=== PATIENT | male | born 1950 | race Native Hawaiian/Other Pacific Islander ===

== ENCOUNTER 2017-04-09 07:09 | Outpatient (CLI) | payer OTHER | END 2017-04-09 07:12 | disposition short-term general hospital (02) | LOC: AMB 07:09 | DX: R06.02 Shortness of breath (principal); I10 Essential (primary) hypertension | CPT/HCPCS: A0425; A0427 ==

== ENCOUNTER 2017-04-09 07:26 | Emergency (ER) | payer OTHER ==
[~2017-04-09] VITALS: Ht 188 cm; Wt 77.1 kg
[2017-04-09 07:14] VITALS: TEMP 99.2
[2017-04-09 07:57] LABS: PLATELET COUNT 387 K/uL (142-355)
[2017-04-09 08:01] LABS: POTASSIUM 4.5 mmol/L (3.6-5.2); SODIUM 136 mmol/L (136-145)
[2017-04-09 09:15] VITALS: BP 104/57
== END 2017-04-09 09:27 | disposition home or self-care (01) ==
LOC: ED 07:26
DX: J44.9 Chronic obstructive pulmonary disease, unspecified (principal); J06.9 Acute upper respiratory infection, unspecified; J02.0 Streptococcal pharyngitis; R00.0 Tachycardia, unspecified
CPT/HCPCS: 36600; 80053; 82550; 82805; 84484; 85027; 87804; 87880; 93005; 94664; 99283

== ENCOUNTER 2017-08-12 20:32 | Inpatient (IN) | payer OTHER ==
[~2017-08-12] VITALS: Ht 188 cm; Wt 78.0 kg
[2017-08-12 20:30] VITALS: BP 190/116; TEMP 98
[2017-08-12 21:27] LABS: PLATELET COUNT 225 K/uL (142-355)
[2017-08-12 21:33] LABS: POTASSIUM 4.7 mmol/L (3.6-5.2)
[2017-08-13] VITALS (55 sets, daily range): BP systolic 59–142; BP diastolic 37–93; TEMP 96.1–99.2; Ht 188 cm; Wt 78.0 kg
[2017-08-13 06:21] LABS: PLATELET COUNT 197 K/uL (142-355)
[2017-08-13 06:45] LABS: POTASSIUM 3.7 mmol/L (3.6-5.2)
[2017-08-13 12:44] LABS: PARTIAL THROMBOPLASTIN TIME 32.4 SECONDS (24.5-33.6)
[2017-08-14] VITALS (14 sets, daily range): BP systolic 100–146; BP diastolic 58–121; TEMP 97.9–98.2
[2017-08-14 07:06] LABS: PLATELET COUNT 162 K/uL (142-355)
[2017-08-14 07:19] LABS: POTASSIUM 4.1 mmol/L (3.6-5.2)
[2017-08-14] MEDS ORDERED: LISI20TA11 PO (14:30)
[2017-08-15] VITALS: BP 147/78; TEMP 98.9
[2017-08-15 04:00] VITALS: BP 153/87; TEMP 97.8
[2017-08-15 05:40] LABS: PLATELET COUNT 168 K/uL (142-355)
[2017-08-15 05:57] LABS: POTASSIUM 4.2 mmol/L (3.6-5.2)
[2017-08-15 08:00] VITALS: BP 139/80; TEMP 98.1
[2017-08-15 12:21] VITALS: BP 136/82; TEMP 97.8
[2017-08-15 16:00] VITALS: BP 140/80; TEMP 98.1
[2017-08-15 20:00] VITALS: BP 143/76; TEMP 98.6
[2017-08-16] VITALS: BP 143/97; TEMP 97.9
[2017-08-16 04:00] VITALS: BP 142/87; TEMP 97.8
[2017-08-16 05:20] LABS: PLATELET COUNT 173 K/uL (142-355)
[2017-08-16 05:34] LABS: POTASSIUM 4.2 mmol/L (3.6-5.2)
[2017-08-16 08:00] VITALS: BP 143/87; TEMP 97.7
[2017-08-16 12:14] VITALS: BP 138/83; TEMP 98.3
[2017-08-16 16:02] VITALS: BP 136/82; TEMP 98.2
[2017-08-16 20:00] VITALS: BP 123/69; TEMP 98.8
[2017-08-17] VITALS: BP 146/85; TEMP 98.4
[2017-08-17 04:00] VITALS: BP 151/96; TEMP 97.9
[2017-08-17 05:41] LABS: PLATELET COUNT 171 K/uL (142-355)
[2017-08-17 06:11] LABS: POTASSIUM 3.6 mmol/L (3.6-5.2)
[2017-08-17 08:00] VITALS: BP 163/98; TEMP 97.7
[2017-08-17 12:00] VITALS: BP 161/94; TEMP 97.8
[2017-08-17 16:00] VITALS: BP 147/86; TEMP 98.3
[2017-08-17 20:22] VITALS: BP 151/92; TEMP 98.2
[2017-08-18 00:14] VITALS: BP 140/89; TEMP 98.1
[2017-08-18 04:00] VITALS: BP 153/96; TEMP 97.5
[2017-08-18 04:32] LABS: PLATELET COUNT 166 K/uL (142-355)
[2017-08-18 04:53] LABS: POTASSIUM 3.8 mmol/L (3.6-5.2)
[2017-08-18 07:54] VITALS: BP 154/95; TEMP 98.7
[2017-08-18 11:15] LABS: POTASSIUM 4.2 mmol/L (3.6-5.2)
[2017-08-18 12:00] VITALS: BP 155/94; TEMP 98.2
[2017-08-18 16:00] VITALS: BP 146/88; TEMP 97.9
[2017-08-18 19:43] VITALS: BP 136/77; TEMP 98.5
[2017-08-19] VITALS (7 sets, daily range): BP systolic 126–167; BP diastolic 75–99; TEMP 97.3–98.1
[2017-08-19 05:20] LABS: PLATELET COUNT 165 K/uL (142-355)
[2017-08-20 03:44] VITALS: BP 143/90; TEMP 98.2
[2017-08-20 08:00] VITALS: BP 148/93; TEMP 97.1
[2017-08-20 12:02] VITALS: BP 144/89; TEMP 98.8
[2017-08-20 16:10] VITALS: BP 144/83; TEMP 98.1
[2017-08-20 20:00] VITALS: BP 128/74; TEMP 98.6
[2017-08-21] VITALS: BP 119/79; TEMP 98.3
[2017-08-21 04:00] VITALS: BP 142/88; TEMP 98.2
[2017-08-21 08:00] VITALS: BP 144/91; TEMP 98.1
[2017-08-21 12:00] VITALS: BP 131/81; TEMP 98.1
[2017-08-21 16:00] VITALS: BP 145/79; TEMP 98.2
[2017-08-21 20:25] VITALS: BP 129/70; TEMP 98.3
[2017-08-22] VITALS: BP 132/77; TEMP 98.4
[2017-08-22 04:00] VITALS: BP 133/86; TEMP 97.9
[2017-08-22 05:43] LABS: PLATELET COUNT 204 K/uL (142-355)
[2017-08-22 06:15] LABS: POTASSIUM 3.6 mmol/L (3.6-5.2)
[2017-08-22 08:00] VITALS: BP 150/94; TEMP 98.8
== END 2017-08-22 10:15 | disposition home or self-care (01) | DRG 208 ==
LOC: ED 20:32 → MED/SURG 21:30 → ICU 21:30 → MED/SURG 08-14 12:00 → ICU 08-14 12:00 → MED/SURG 08-22 10:15
PROVIDERS: Family Medicine; Specialist; ADMIT Internal Medicine
PROC: 5A1935Z Respiratory Ventilation, Less than 24 Consecutive Hours (ICD-10-PCS; principal; 2017-08-12)
PROC: 0BH17EZ Insertion of Endotracheal Airway into Trachea, Via Natural or Artificial Opening (ICD-10-PCS; 2017-08-12)
DX: J96.01 Acute respiratory failure with hypoxia (principal); J44.1 Chronic obstructive pulmonary disease with (acute) exacerbation; I10 Essential (primary) hypertension; D72.828 Other elevated white blood cell count; R62.7 Adult failure to thrive
CPT/HCPCS: 36415; 36600; 51702; 80048; 80053; 82550; 82805; 82948; 82962; 83735; 83880; 84484; 85027; 85379; 85610; 85730; 93005; 94003; 94640; 94664; 94760; 96360; 96361; 96365; 96366; 96374; 96375; 96376; 99291; J0360; J0696; J1265; J1940; J1956; J2060; J2250; J2920; J2930; J3490

== ENCOUNTER 2017-08-29 19:17 | Outpatient (CLI) | payer OTHER ==
[~2017-08-29 19:17] MED LIST: LISI20TA11 PO
== END 2017-08-29 19:23 | disposition short-term general hospital (02) ==
LOC: AMB 19:17
DX: J44.1 Chronic obstructive pulmonary disease with (acute) exacerbation (principal)
CPT/HCPCS: A0425; A0427

== ENCOUNTER 2017-08-29 19:29 | Inpatient (IN) | payer OTHER ==
[2017-08-29] VITALS (21 sets, daily range): BP systolic 58–210; BP diastolic 48–121; TEMP 98–99.2; Ht 182.9 cm; Wt 80.7 kg
[~2017-08-29] VITALS: Ht 182.9 cm; Wt 80.7 kg
[2017-08-29 19:39] LABS: PLATELET COUNT 167 K/uL (142-355)
[2017-08-29 19:56] LABS: POTASSIUM 4.7 mmol/L (3.6-5.2)
[2017-08-29 19:59] LABS: PARTIAL THROMBOPLASTIN TIME 24.7 SECONDS (24.5-33.6)
[2017-08-30] VITALS (33 sets, daily range): BP systolic 80–147; BP diastolic 60–89; TEMP 97.7–99.1
[2017-08-30 07:53] LABS: PLATELET COUNT 137 K/uL (142-355)
[2017-08-30 08:05] LABS: POTASSIUM 4.7 mmol/L (3.6-5.2)
[2017-08-31] VITALS (14 sets, daily range): BP systolic 112–152; BP diastolic 62–81; TEMP 97.6–98.7
[2017-08-31 04:50] LABS: PLATELET COUNT 143 K/uL (142-355)
[2017-08-31 05:41] LABS: POTASSIUM 4.3 mmol/L (3.6-5.2)
[2017-09-01] VITALS (7 sets, daily range): BP systolic 130–159; BP diastolic 79–89; TEMP 97.5–98.3
[2017-09-01 05:30] LABS: PLATELET COUNT 124 K/uL (142-355)
[2017-09-02 03:58] VITALS: BP 157/98; TEMP 97.4
[2017-09-02 07:50] VITALS: BP 159/93; TEMP 97.9
[2017-09-02 12:00] VITALS: BP 152/96; TEMP 97.8
[2017-09-02 16:00] VITALS: BP 162/98; TEMP 98
[2017-09-02 20:00] VITALS: BP 170/98; TEMP 98.1
[2017-09-03] VITALS: BP 156/98; TEMP 97.7
[2017-09-03 04:00] VITALS: BP 152/99; TEMP 97.7
[2017-09-03 06:21] LABS: PLATELET COUNT 141 K/uL (142-355)
[2017-09-03 06:37] LABS: POTASSIUM 4.2 mmol/L (3.6-5.2)
[2017-09-03 08:00] VITALS: BP 168/105; TEMP 97.8
[2017-09-03 11:52] VITALS: BP 166/95; TEMP 97.9
== END 2017-09-03 14:29 | disposition swing bed (61) | DRG 208 ==
LOC: ED 19:29 → ICU 19:50 → MED/SURG 19:50 → ED 19:50 → MED/SURG 08-31 11:07
PROVIDERS: Internal Medicine
PROC: 5A1945Z Respiratory Ventilation, 24-96 Consecutive Hours (ICD-10-PCS; principal; 2017-08-29)
DX: J96.91 Respiratory failure, unspecified with hypoxia (principal); Z87.891 Personal history of nicotine dependence; J44.9 Chronic obstructive pulmonary disease, unspecified; I10 Essential (primary) hypertension; F41.8 Other specified anxiety disorders; M54.89 Other dorsalgia; Z71.6 Tobacco abuse counseling; M62.59 Muscle wasting and atrophy, not elsewhere classified, multiple sites
CPT/HCPCS: 36415; 36600; 51702; 80048; 80053; 81000; 82550; 82805; 83605; 84484; 85027; 85610; 85730; 87070; 87205; 94002; 94003; 94640; 94664; 94760; 96365; 96372; 99285; J0696; J1650; J2250; J2405; J2543; J2920; J2930; J3490; J7120

== ENCOUNTER 2017-09-03 14:30 | Inpatient (IN) | payer OTHER ==
[~2017-09-03] VITALS: Ht 182.9 cm; Wt 69.6 kg
[2017-09-03 17:47] VITALS: BP 162/91; TEMP 97.8; Ht 182.9 cm; Wt 69.6 kg
[2017-09-03 20:00] VITALS: BP 121/103; TEMP 97.4
[2017-09-04 08:00] VITALS: BP 142/84; TEMP 97.9
--- NOTE | 2017-09-04 09:00 | NUR ---
IN TO INTERVIEW PT FOR SWING BED. PT SITTING UP IN THE BED TALKING WITH VISITOR AT BS. PT GIVEN THE WORDS SOCK BLUE AND BED AND IS ABLE TO REPEAT ALL 3. PT INSTRUCTED TO REMEMBER THE WORDS FOR LATER IN INTERVIEW. PT STATES IT IS Thursday AND ALL INFO IS CORRECT. PT DENIES HAVING ANY PAIN AND STATES HE HAS BEEN EATING WELL. PT DENIES ANY S/S OF DEPRESSION. PT ABLE TO RECALL WORDS SOCK AND BLUE WITHOUT CUEING AND IS ABLE TO RECALL BED AFTER CUEING. PT VOICES NO COMPLAINTS OR NEEDS AT THIS TIME.
--- NOTE | 2017-09-04 15:40 | NUR ---
PT UP AMBULATING IN THE HALLWAY. NAD NOTED.
--- NOTE | 2017-09-04 18:43 | NUR ---
PT AMBULATING IN THE HALLWAY. NAD NOTED.
[2017-09-04 20:00] VITALS: BP 150/84; TEMP 98.6
[2017-09-05 08:29] VITALS: BP 141/87; TEMP 98.6
[2017-09-05 20:00] VITALS: BP 163/93; TEMP 98.1
[2017-09-06 08:00] VITALS: BP 148/88; TEMP 97.8
[2017-09-06 20:00] VITALS: BP 134/83; TEMP 98.5
--- NOTE | 2017-09-06 22:39 | NUR ---
211: PT WALKING BACK FROM BATH O2 SAT CHECKED WITHOUT OXYGEN ON. O2 SAT97%.
[2017-09-07 08:00] VITALS: BP 136/82; TEMP 98
[2017-09-07 20:00] VITALS: BP 146/88; TEMP 98
[2017-09-08 08:00] VITALS: BP 142/93; TEMP 98
[2017-09-08 20:00] VITALS: BP 137/76; TEMP 98.4
[2017-09-09 07:41] VITALS: BP 121/80; TEMP 97.7
[2017-09-09 19:45] VITALS: BP 139/74; TEMP 98.5
[2017-09-10 08:00] VITALS: BP 131/74; TEMP 98.7
[2017-09-10 19:23] VITALS: BP 108/78; TEMP 98.6
[2017-09-11 08:00] VITALS: BP 125/81; TEMP 98.3
--- NOTE | 2017-09-11 09:15 | NUR ---
PT TAKEN TO PHYSICAL THERAPY AT THIS TIME VIA W/C. NO PROBLEMS NOTED.
--- NOTE | 2017-09-11 16:21 | NUR ---
09/03/17-MR PUGH WAS ADMITTED TO OUR FACILITY ON 09/03/17 FOR SHORT TERM REHAB, HE WILL BE RECEIVING PHYSICAL THERAPY, OCCUPATIONAL THERAPY AND HE WILL PARTICIPATE IN THE ACTIVITIES THATS SCHEDULED WITH THE ACTIVITIES PERSON. PT HAS DIAGNOSIS OF MUSCLE WEAKNESS, DECONDITIONED, COPD(SEVERE), HTN, ANXIETY, AND CHRONIC BACK PAIN & GERD. MR. PUGH REQUIRES 24 HOR CORRECTION CARE WHICH IS A PRACTICAL MATTER AND CON ONLY BE DONON ON A INPATIENT BASIS BECAUSE HE DOES NOT HAVE ANY HELP AT HOME WITH HIS ADL'S. HE IS NOT ABLE TO PREPARE HIS OWN FOOD OR ABLE TO HAVE AN ADEQUATE BATH ON SOME DAYS. HE HAS NOT HELP AT HOME AND THEREFORE NEEDS CORRECTION REHAB. ARCHITECTURAL ENGINEERING TEACHER WILL CONTINUE TO OBSERVE AND ASSIST WITH ANY MEDICALLY RELATED ISSUES ALONG WITH REHAB THERAPY.
[2017-09-11 20:00] VITALS: BP 155/88; TEMP 98.7
[2017-09-12 08:00] VITALS: BP 118/79; TEMP 98.5
[2017-09-12 20:00] VITALS: BP 112/83; TEMP 97.9
--- NOTE | 2017-09-13 06:30 | NUR ---
09/12/2017 AT 2305 CALLED TO PATIENTS ROOM, PT. C/O SHORTNESS OF BREATH STATES HE WAS ASLEEP AND WHEN HE WOKE UP NOTICED HE WAS SOB AND IT WAS INCREASING EVERY FEW MINUTES PT. ALREADY HAD USED HIS RESCUE INHALER (ALBUTEROL) AT THE BEDSIDE. RESPIRATORY THERAPY AT THE BEDSIDE AND ADMINISTERING A HHNEB TREATMENT. PT. STILL SITTING UP IN THE BED, ANXIOUS AND STATES "CANT GET A DEEP BREATH AND IM SCARED!" ENCOURAGED PATIENT TO TAKE SLOW DEEP CLEANSING BREATHS. PATIENT O2 SAT AT THIS TIME IS 96%-97% WITH A RESPIRATORY RATE OF 24. WHEN LISTENING TO PATIENT WITH STETHOSCOPE EXPIRATORY WHEEZING AND SOME CRACKLES ASCULTATED IN LEFT LOWER LOBE. RESP. THERAPIST AT THE PATIENTS BEDSIDE AND I MADE A PHONE CALL TO DR. MUNIZ. 09/12/[address] MUNIZ AND ORDERS GIVEN TO GIVE PT. AN ADDITIONAL DOSE OF HIS ATIVAN 0.5MG AND MAY REPEAT IN 30 MINUTES IF PATIENT ANXIETY NOT A LOT BETTER. ORDERS FAXED TO [facility]. 09/12/2017 AT 2330 ATIVAN 0.5MG TABLET PO GIVEN WITHOUT DIFFICULTY, INSTRUCTED PATIENT TO TAKE SLOW DEEP BREATHS, STAYED AT HIS BEDSIDE X 20 MINUTES. PT. A LOT CALMER, RESPIRATORY RATE DOWN TO 16 AND NON LABORED. O2 SAT 97%. PT. STATES "I FEEL A LOT BETTER NOW!" CALL LIGHT WITHIN REACH AND PT. ADVISED TO CALL NURSE IF HE HAS ANYMORE EPISODES. WILL CONTINUE TO MONITOR.
[2017-09-13 07:45] VITALS: BP 105/76; TEMP 98
--- NOTE | 2017-09-13 16:00 | NUR ---
PT C/O SOB AND REQUEST ATIVAN. DR. MUNIZ CALLED AND ONE TIME DOSE OF PO ATIVAN ORDERED AND GIVEN. PTS O2 IS 98% ON 3L AND RESP: 20. PT APPERS TO BE ANXIOUS AND USING ACCESSORY MUSCLES TO BREATHE. WILL CONT TO MONITOR.
--- NOTE | 2017-09-13 17:05 | NUR ---
PT C/O CONTINUED SOB AT REST AND STILL APPEARS ANXIOUS. O2 SATS: 97% ON 3L NC AND 20 RESP. CHEST XRAY RESULTS CALLED BACK TO DR. MUNIZ AND HE IS MADE AWARE OF PTS C/O'S. ORDERS ANOTHER ONE TIME DOSE OF ATIVAN AND BREATHING TX. WILL CONT TO MONITOR PT.
[2017-09-13 19:58] VITALS: BP 157/93; TEMP 98.3
[2017-09-14 07:44] VITALS: BP 111/80; TEMP 98.1
[2017-09-14 20:00] VITALS: BP 115/76; TEMP 98
--- NOTE | 2017-09-15 01:26 | NUR ---
09/14/17 2330 CALLED TO ROOM PT SAID HE CANNOT BREATH IS SOB RESPIRATORY NOTIFIED BREATHING TREATMNET GIVEN. V/S 150/89 HR 116 RESP 22 O2 SAT 96 PERCENT ON 2LPM NC.PT STILL SAID THAT HE IS HAVING SHORTNESS OF BREATH CANNOT CATCH IS BREATH FOLLOWING TREATMENT.CC 09/14/17 2345 AIR CONDITIONER TURNED DOWN ALSO PLACED A FAN ON PATIENT TO HELP HIM BREATHE EASIER.PT CONTINUES TO SAY HE CANNOT BREATH VERY WELL 02 SAT REMAINS AT 95-96 PERCENT PT DOES NOT APPEAR TO BE IN DISTRESS TOLD HIM I WILL CALL THE DOCTOR AND SEE IF THERE IS ANYTHING WE CAN DO FURTHER HE SAID OKAY.CC 09/14/[address] MUNIZ NOTIFIED OF PATIENT HAVING TROUBLE BREATHING V/S GIVEN ALSO TOLD HIM ABOUT RECEVING BREATHING TREATMENT HE SAID HE IS HAVING ANXIETY NEW ORDERS RECEIVED TO REPEAT ATIVAN.CC 09/14/17 ATIVAN 0.5MG PO GIVEN AT 0030.CC
--- NOTE | 2017-09-15 05:00 | NUR ---
09/15/17 0325 PT CALLED SAID HE IS HAVING MORE TROUBLE BREATHING WANTS A BREATHING TREATMENT.PT IS HAVING SOME LABORED BREATHING RESP 22-24.RESP NOTIFED BREATHING TREATMNET GIVEN.CC 09/15/[address] MUNIZ NOTIFIED OF PT STILL HAVING HARD TIME OF BREATHING SAID BREATHING TREATMENT HAS NOT HELPED.V/S 172/97 127 24 93 PERCENT. SAID TO MOVE PT TO ICU AND PLACE ON BIPAP.CC 09/15/17 3687 PT TO ICU VIA BED REPORT GIVEN TO ICU NURSE SUZE LUNA RN
== END 2017-09-15 03:55 | disposition short-term general hospital (02) | DRG 556 ==
LOC: MED/SURG 14:30
PROVIDERS: ADMIT Internal Medicine
DX: M62.81 Muscle weakness (generalized) (principal); J44.1 Chronic obstructive pulmonary disease with (acute) exacerbation; R62.7 Adult failure to thrive; I10 Essential (primary) hypertension; F41.8 Other specified anxiety disorders; K21.9 Gastro-esophageal reflux disease without esophagitis; F41.1 Generalized anxiety disorder; R06.02 Shortness of breath
CPT/HCPCS: 94640; 94664; 94760

== ENCOUNTER 2017-09-15 03:50 | Inpatient (IN) | payer OTHER ==
[2017-09-15] VITALS (23 sets, daily range): BP systolic 80–164; BP diastolic 44–105; TEMP 97–98.1; Ht 182.9 cm; Wt 71.8 kg
[~2017-09-15] VITALS: Ht 182.9 cm; Wt 71.8 kg
--- NOTE | 2017-09-15 04:30 | NUR ---
0425 67 YR OLD W/M PT ADMITTED TO ICU FROM SWING BED ON MED/SURG FOR SOB. PT HAS HISTORY OF COPD, GERD, ANXIETY, STOMACH AND BACK SURGERY, HTN. PT IS AWAKE, ALERT, AND ORIENTED X4 DENIES ANY PAIN OR NEEDS AT THIS TIME. SKIN WARM AND DRY, RADIAL AND PEDAL PULSES INTACT, DELI DEPARTMENT MANAGER IN USE WITH TACHYCARDIA NOTED IN THE 110s, RESP RATE 16-14 LABORED, NONPRODUCTIVE COUGH NOTED AT TIMES, 20G IV LOCK INTACT TO R WRIST WITH NO PROBLEMS NOTED TO SITE(STARTED TODAY JUST BEFORE PT WAS TRANSFERED TO ICU), BS+, LAST BM ON 09/14/17, LUNGS COARSE WITH WHEEZING NOTED. PT STATES IF HE COULD JUST BREATH RIGHT SO HE COULD GET SOME SLEEP TONIGHT HE WOULD FEEL BETTER. NO ACUTE DISTRESS NOTED. AT 0440 PT PLACED ON BIPAP WITH FIO2 OF 35% 02/18, O2 SAT IS 100%. PT TOLERATING BIPAP WELL. EDUCATED ON CARE AND BED CONTROLS, WILL MONITOR CLOSELY.
--- NOTE | 2017-09-15 06:02 | NUR ---
PT RESTING WITH EYES CLOSED WITH NO S/S OF PAIN OR DISTRESS NOTED, RESP RATE 15 NONLABORED, BIPAP IN USE WITH SAT OF 100%, IV LOCK INTACT TO R WRIST WITH NO PROBLEMS NOTED TO SITE, SOFTWARE BUILD ENGINEER IN USE, VITALS BEING MONITORED, WILL MONITOR CLOSELY, RAILS UP, BED IN LOW POSITION.
--- NOTE | 2017-09-15 08:35 | NUR ---
DR MUNIZ HERE TO EXAMINE PATIENT. NEW ORDERS RECEIVED.
--- NOTE | 2017-09-15 09:10 | NUR ---
PLACED ON NASAL CANNULA TO EAT BREAKFAST.
[2017-09-15 09:35] LABS: PLATELET COUNT 239 K/uL (142-355)
--- NOTE | 2017-09-15 10:00 | NUR ---
FAMILY AT BEDSIDE.
--- NOTE | 2017-09-15 10:05 | NUR ---
PT ASKING FOR BREATHING TREATMENT. PLACED BACK ON BIPAP AT THIS TIME.
--- NOTE | 2017-09-15 10:50 | NUR ---
ASSISTED TO BATHROOM FOR BM.
--- NOTE | 2017-09-15 11:30 | NUR ---
MULTIPLE TRIPS MADE TO RESTROOM. ABDOMINAL CRAMPS AND LOOSE STOOL REPORTED. PATIENT AGREED TO USE BEDSIDE TOILET SO HE CAN CONTINUE TO WEAR BIPAP. NOTIFIED .
[2017-09-15 11:31] LABS: POTASSIUM 5.3 mmol/L (3.6-5.2)
--- NOTE | 2017-09-15 14:13 | NUR ---
1400 BP - 80/44 WOKE PT UP AND RECHECKED BP - 90/[address] MUNIZ TO REPORT LOW BP. NEW ORDER RECEIVED TO DECREASE DOSE OF PRN DILAUDID FROM 2MG TO 1MG PRN.
--- NOTE | 2017-09-15 15:20 | NUR ---
ASSISTED BACK TO BED FROM RESTROOM. REPORTS ANOTHER LOOSE BM. RESPIRATORY AT BEDSIDE TO PLACE HIM ON 35% VENTI MASK.
--- NOTE | 2017-09-15 16:35 | NUR ---
AMBULATED WITH ASSISTANCE TO RESTROOM.
--- NOTE | 2017-09-15 17:42 | NUR ---
SPOKE WITH DR. MUNIZ ABOUT CONTINUED LOW BP (93/74) AND THE NUMBER OF LOOSE STOOLS HE HAS HAD TODAY (6) NEW ORDERS RECEIVED.
--- NOTE | 2017-09-15 19:25 | NUR ---
PT AWAKE WITH VISITOR AT BEDSIDE, NO S/S OF PAIN OR DISTRESS NOTED, IV INTACT, RESP RATE NONLABORED, O2 IN USE VIA VENTI MASK, SENIOR MECHANICAL PROJECT MANAGER IN USE, VITALS BEING MONITORED, URINAL WITHIN PT'S REACH AT BEDSIDE, PT DENIES ANY NEEDS OR PROBLEMS AT THIS TIME, WILL MONITOR CLOSELY, RAILS UP X3, BED IN LOW POSITION.
--- NOTE | 2017-09-15 22:20 | NUR ---
PT NOW RESTING IN BED WITH EYES CLOSED, NO S/S OF PAIN OR DISTRESS NOTED, NOTE B/P LOW RECYCLING TECH HELD NIGHTLY DOSE OF ATIVAN 1MG AND WILL CONTINUE TO MONITOR B/P CLOSELY, RESP RATE 16 NONLABORED, VENTI MASK IN USE WITH FIO2 OF 35%, STEEL HEATER IN USE WITH RATE IN 90s, URINAL WITHIN PT'S REACH, WILL MONITOR CLOSELY, RAILS UP, BED IN LOW POSITION.
[2017-09-16] VITALS (26 sets, daily range): BP systolic 89–164; BP diastolic 59–105; TEMP 97.7–98.7
--- NOTE | 2017-09-16 00:06 | NUR ---
PT RESTING QUIETLY IN BED ON L SIDE WITH EYES CLOSED, NO S/S OF PAIN OR DISTRESS NOTED, RESP RATE 14-16 NONLABORED, VENTI MASK IN USE WITH FIO2 OF 35% AND O2 SAT OF 99-100%, SIGN HANGER IN USE, VITALS BEING MONITORED, 20G IV INTACT TO R WRIST WITH NO PROBLEMS NOTED TO SITE AND NS INFUSING AT 100ML/HR PER ORDER. PT HAS SLEEP MOST OF THE SHIFT WITH NO DISTRESS, WILL MONITOR, RAILS UP X3, BED IN LOW POSITION.
--- NOTE | 2017-09-16 01:49 | NUR ---
PT CONTINUES TO REST IN POSITION OF COMFORT WITH EYES CLOSED, NO S/S OF PAIN OR DISTRESS NOTED, IV INTACT WITH FLUID ONGOING, VENTI MASK IN USE WITH SAT OF 100%, RESP RATE 16 NONLABORED, CAN DRAGGER IN USE, WILL MONITOR CLOSELY, RAILS UP X3, BED IN LOW POSITION, URINAL AT BEDSIDE.
--- NOTE | 2017-09-16 04:00 | NUR ---
PT AWAKE AND ORIENTED SITTING IN POSITION OF COMFORT IN BED WATCHING TV, DENIES ANY PAIN OR PROBLEMS, STATES HIS BREATHING IS BETTER TODAY, SKIN WARM AND DRY, RESP RATE NONLABORED, VENTI-MASK IN USE, WOODWIND REEDS CUTTER IN USE WITH RATE IN 90s, URINAL WITHIN PT'S REACH, VITALS BEING MONITORED, 20G IV INTACT TO R WRIST WITH NS INFUSING AT 100ML/HR, WILL MONITOR, RAILS UP, BED IN LOW POSITION.
[2017-09-16 06:08] LABS: PLATELET COUNT 195 K/uL (142-355)
--- NOTE | 2017-09-16 06:22 | NUR ---
PT AWAKE AND ALERT SITTING UP IN BED READING A BOOK, DENIES ANY NEEDS OR PROBLEMS, NO S/S OF PAIN OR DISTRESS NOTED, IV INTACT WITH FLUID ONGOING, RESP RATE NONLABORED VENTI-MASK WITH FIO2 OF 35% IN USE AND O2 SAT OF 99%, PT IS FEELING MUCH BETTER THIS MORNING HE STATES ESPECIALLY SINCE HE GOT SOME SLEEP LAST NIGHT. WILL MONITOR CLOSELY, RAILS UP X3, BED IN LOW POSITION.
[2017-09-16 07:43] LABS: POTASSIUM 4.5 mmol/L (3.6-5.2)
--- NOTE | 2017-09-16 08:15 | NUR ---
DR. MUNIZ HERE TO REVIEW CHART/LABS AND EXAMINE PATIENT. NEW ORDERS RECEIVED.
--- NOTE | 2017-09-16 11:20 | NUR ---
VISITOR AT BEDSIDE.
--- NOTE | 2017-09-16 12:00 | NUR ---
DR. MUNIZ CAME BACK BY AND ORDERED THAT FIO2 BE DECREASED TO 28%. RESPIRATORY NOTIFIED.
--- NOTE | 2017-09-16 13:05 | NUR ---
VISITOR AT BEDSIDE.
--- NOTE | 2017-09-16 14:10 | NUR ---
AMBULATED WELL TO RESTROOM.
--- NOTE | 2017-09-16 14:29 | NUR ---
AFTER COMPLETING HIS BATH HE CAME OUT OF RESTROOM AND IMMEDIATELY ASKED FOR HIS OXYGEN. PULSE OX OBTAINED AT THIS TIME 87% RA. PLACED PATIENT BACK ON VENTI MASK, (FIO2: 28%) WITHIN 45 SEC HE RETURNED TO 94-95%
--- NOTE | 2017-09-16 15:30 | NUR ---
RESPIRATORY AT BEDSIDE TO GIVE REQUESTED BREATHING TREATMENT. SMOKING CESSATION EDUCATION PROVIDED BY RESPIRATORY.
--- NOTE | 2017-09-16 15:46 | NUR ---
FAMILY CAME TO VISIT. HE REFUSED TO HAVE A VISITOR AT THIS TIME. HE IS NOT FEELING WELL AND OUT OF BREATH. DIARRHEA HAS RETURNED TODAY WELL. CURRENT O2 SAT IS 96% ON 28% VENTIMASK.
--- NOTE | 2017-09-16 15:55 | NUR ---
COMPLAINS OF ABDOMINAL PAIN DESCRIBED CRAMPING. PAIN IS COMING AND GOING AND LASTING ABOUT 10-15 MINUTES EACH TIME. SO FAR HAS HAD 3 LOOSE BOWEL MOVEMENTS. REQUEST PAIN MEDICATION AT THIS TIME. PAIN /
--- NOTE | 2017-09-16 19:48 | NUR ---
UP OUT OF BED WITH ASSISTANCE TO BSC. PT VOIDED 200ML OF YELLOW URINE.
[2017-09-17] VITALS (13 sets, daily range): BP systolic 110–153; BP diastolic 69–90; TEMP 97–98.7
[2017-09-17 07:02] LABS: POTASSIUM 4.6 mmol/L (3.6-5.2)
--- NOTE | 2017-09-17 07:54 | NUR ---
PT HAS RESTED THOUGH THIS SHIFT WITH NO COMPLAINTS.
--- NOTE | 2017-09-17 08:52 | NUR ---
PATIENT UP IN BED ATE ALL BREAKFAST, TERRELL WELL STATES "FEELING BETTER" SAT 97-99 WEARING O2 AT 2L NC. RECIEVED BREATHING TX. NO COMPLAINTS VOICED.
--- NOTE | 2017-09-17 11:39 | NUR ---
PT APPEARS TO BE DOING BETTER UP TO BR WITHOUT 02. BM AND VOID. BACK TO BED CHECKED SAT 95%. REPLACE O2. NO COMPLAINTS. SITTING UP HIGH IN BED. READING.
--- NOTE | 2017-09-17 12:48 | NUR ---
PT SITTING UP IN BED ATE ALL LUNCH TERRELL WELL. DR MUNIZ VISITED CHECKED PT. RECIEVED NEW ORDERS. PT TO MOVE TO MED SURG FLOOR. REPORT TO MARYELLEN NURSE ON MED SURG FLOOR.
--- NOTE | 2017-09-17 14:00 | NUR ---
PT MOVED TO ROOM 1103 ON MED SURG FLOOR. PT ORIENTED TO ROOM, RESP DEPT HERE PT STARTED ON BREATHING TX. REPORT TO SCOTTY KAYE RN. PT CONTINUES ON 22 VIA NC AT 2L. SAT 92% RESP RATE 20.
--- NOTE | 2017-09-17 14:00 | NUR ---
Pt. TRANSFERRED TO ROOM 1103 VIA W/C. Pt. ON 02 @ 2L PER NC.
[2017-09-18] VITALS (7 sets, daily range): BP systolic 137–159; BP diastolic 79–89; TEMP 97.6–98.2
--- NOTE | 2017-09-19 03:06 | NUR ---
09/19/17 PT RECEVING BREATHING TX TOLERATED WELL.CC
[2017-09-19 04:00] VITALS: BP 133/81; TEMP 98.1
[2017-09-19 08:00] VITALS: BP 161/95; TEMP 98
[2017-09-19 12:00] VITALS: BP 154/93; TEMP 98.3
[2017-09-19 16:00] VITALS: BP 147/98; TEMP 98.4
[2017-09-19 20:02] VITALS: BP 120/84; TEMP 98
[2017-09-20] VITALS (7 sets, daily range): BP systolic 132–149; BP diastolic 81–95; TEMP 97.5–98.5
[2017-09-21 05:14] VITALS: BP 152/95; TEMP 98.2
[2017-09-21 05:49] LABS: PLATELET COUNT 144 K/uL (142-355)
[2017-09-21 05:57] LABS: POTASSIUM 3.9 mmol/L (3.6-5.2)
[2017-09-21 07:22] VITALS: BP 144/93; TEMP 97.6
[2017-09-21 11:50] VITALS: BP 133/87; TEMP 98
[2017-09-21 16:00] VITALS: BP 133/79; TEMP 97.8
[2017-09-21 20:00] VITALS: BP 125/82; TEMP 98.2
[2017-09-22] VITALS: BP 147/89; TEMP 98
[2017-09-22 03:53] VITALS: BP 135/84; TEMP 98.1
[2017-09-22 07:58] VITALS: BP 126/61; TEMP 97.9
--- NOTE | 2017-09-22 11:00 | NUR ---
PHYSICAL THERAPY SEEING PT AT THIS TIME. NO PROBLEMS NOTED.
[2017-09-22 12:00] VITALS: BP 145/90; TEMP 98.1
--- NOTE | 2017-09-22 15:15 | NUR ---
IV D/C'D. D/C INSTURCTIONS GIVEN. PT TO FU WITH ALONSO JARED 10-01-17 AT 2:00. PT VERBALIZES UNDERSTANDING. PT HAS NO FUTHER QUESTIONS. PT WHEELED OUT VIA W/C BY NURSE AND HELPED INTO [employer] VEHICLE. NO PROBLEMS NOTED.
== END 2017-09-22 14:45 | disposition home or self-care (01) | DRG 192 ==
LOC: ICU 03:50 → MED/SURG 09-17 14:00
PROVIDERS: ADMIT Internal Medicine
DX: J44.1 Chronic obstructive pulmonary disease with (acute) exacerbation (principal); I10 Essential (primary) hypertension; F41.8 Other specified anxiety disorders; R19.7 Diarrhea, unspecified; E86.0 Dehydration
CPT/HCPCS: 36415; 80048; 80053; 85027; 94640; 94664; 94760; J1170; J2405; J2930

== ENCOUNTER 2018-02-02 15:40 | Inpatient (IN) | payer OTHER | END 2018-02-13 07:23 | disposition still patient (30) | LOC: PAVC 15:40 | PROVIDERS: ADMIT Internal Medicine ==

== ENCOUNTER 2018-02-13 08:02 | Inpatient (IN) | payer OTHER | END 2018-03-16 09:39 | disposition still patient (30) | LOC: PAVC 08:02 | PROVIDERS: ADMIT Internal Medicine ==

== ENCOUNTER 2018-03-16 10:08 | Inpatient (IN) | payer OTHER | END 2018-04-16 09:41 | disposition still patient (30) | LOC: PAVC 10:08 | PROVIDERS: ADMIT Internal Medicine ==

== ENCOUNTER 2018-03-19 11:19 | Outpatient (CLI) | payer OTHER | END 2018-03-19 23:23 | disposition home or self-care (01) | LOC: RAD 11:19 | DX: R09.89 Other specified symptoms and signs involving the circulatory and respiratory systems (principal); R05 Cough ==

== ENCOUNTER 2018-04-07 16:52 | Outpatient (CLI) | payer OTHER | END 2018-04-07 22:09 | disposition home or self-care (01) | LOC: LAB 16:52 | DX: R09.3 Abnormal sputum (principal) | CPT/HCPCS: 87070; 87205 ==

== ENCOUNTER 2018-04-16 10:35 | Inpatient (IN) | payer OTHER | END 2018-05-14 13:52 | disposition still patient (30) | LOC: PAVC 10:35 | PROVIDERS: ADMIT Internal Medicine ==

== ENCOUNTER 2018-04-30 13:58 | Outpatient (CLI) | payer OTHER ==
[2018-04-30 14:14] LABS: PLATELET COUNT 230 K/uL (142-355)
[2018-04-30 14:34] LABS: POTASSIUM 4.9 mmol/L (3.6-5.2)
== END 2018-04-30 19:49 | disposition home or self-care (01) ==
LOC: LAB 13:58
PROVIDERS: Internal Medicine
DX: J44.9 Chronic obstructive pulmonary disease, unspecified (principal); I10 Essential (primary) hypertension; Z12.5 Encounter for screening for malignant neoplasm of prostate; Z79.899 Other long term (current) drug therapy; E55.9 Vitamin D deficiency, unspecified; E53.8 Deficiency of other specified B group vitamins; R97.20 Elevated prostate specific antigen [PSA]
CPT/HCPCS: 80053; 82306; 82607; 84153; 85027

== ENCOUNTER 2018-05-04 12:46 | Outpatient (CLI) | payer OTHER | END 2018-05-04 23:16 | disposition home or self-care (01) | LOC: LAB 12:46 | DX: I10 Essential (primary) hypertension (principal) | CPT/HCPCS: 87081 ==

== ENCOUNTER 2018-05-14 14:34 | Inpatient (IN) | payer OTHER | END 2018-06-14 12:33 | disposition still patient (30) | LOC: PAVC 14:34 | PROVIDERS: ADMIT Internal Medicine ==

== ENCOUNTER 2018-06-02 11:42 | Outpatient (CLI) | payer OTHER | END 2018-06-02 23:11 | disposition home or self-care (01) | LOC: RAD 11:42 | DX: R07.89 Other chest pain (principal) ==

== ENCOUNTER 2018-06-14 13:04 | Inpatient (IN) | payer OTHER | END 2018-07-14 13:45 | disposition still patient (30) | LOC: PAVC 13:04 | PROVIDERS: ADMIT Internal Medicine ==

== ENCOUNTER 2018-07-14 14:22 | Inpatient (IN) | payer OTHER | END 2018-08-14 09:42 | disposition still patient (30) | LOC: PAVC 14:22 | PROVIDERS: ADMIT Internal Medicine | DX: Z51.89 Encounter for other specified aftercare (principal) ==

== ENCOUNTER 2018-08-02 04:21 | Outpatient (CLI) | payer OTHER | END 2018-08-02 19:15 | disposition home or self-care (01) | LOC: LAB 04:21 | DX: E55.9 Vitamin D deficiency, unspecified (principal) | CPT/HCPCS: 36415; 82306 ==

== ENCOUNTER 2018-08-02 09:43 | Outpatient (CLI) | payer OTHER | END 2018-08-02 19:18 | disposition home or self-care (01) | LOC: RAD 09:43 | DX: R09.89 Other specified symptoms and signs involving the circulatory and respiratory systems (principal); R06.02 Shortness of breath ==

== ENCOUNTER 2018-08-14 10:16 | Inpatient (IN) | payer OTHER | END 2018-09-13 12:21 | disposition still patient (30) | LOC: PAVC 10:16 | PROVIDERS: ADMIT Internal Medicine ==

== ENCOUNTER 2018-09-13 12:47 | Inpatient (IN) | payer OTHER | END 2018-10-14 12:34 | disposition still patient (30) | LOC: PAVC 12:47 | PROVIDERS: ADMIT Internal Medicine | CPT/HCPCS: 93005; 94664; 94760 ==

== ENCOUNTER 2018-09-30 04:59 | Emergency (ER) | payer OTHER ==
[~2018-09-30] VITALS: Ht 188 cm; Wt 80.3 kg
[2018-09-30 05:17] VITALS: TEMP 97.5
[2018-09-30 05:53] LABS: PLATELET COUNT 206 K/uL (142-355)
[2018-09-30 06:06] LABS: POTASSIUM 4.9 mmol/L (3.6-5.2); SODIUM 137 mmol/L (136-145)
[2018-09-30 07:15] VITALS: BP 106/73
== END 2018-09-30 07:15 | disposition home or self-care (01) ==
LOC: ED 04:59
PROVIDERS: Emergency Medicine
DX: J44.9 Chronic obstructive pulmonary disease, unspecified (principal)
CPT/HCPCS: 36415; 80053; 82550; 82553; 84484; 85027; 96374; 99284; J2930

== ENCOUNTER 2018-10-14 14:28 | Inpatient (IN) | payer OTHER | END 2018-11-14 17:18 | disposition still patient (30) | LOC: PAVC 14:28 | PROVIDERS: ADMIT Internal Medicine ==

== ENCOUNTER 2018-10-19 05:50 | Outpatient (CLI) | payer OTHER ==
[2018-10-19 10:21] LABS: POTASSIUM 4.1 mmol/L (3.6-5.2)
[2018-10-19 11:01] LABS: PLATELET COUNT 121 K/uL (142-355)
== END 2018-10-19 23:13 | disposition home or self-care (01) ==
LOC: LAB 05:50
PROVIDERS: Internal Medicine
DX: R68.89 Other general symptoms and signs (principal); R79.89 Other specified abnormal findings of blood chemistry
CPT/HCPCS: 36415; 80053; 85027

== ENCOUNTER 2018-11-14 17:53 | Inpatient (IN) | payer OTHER | END 2018-12-14 13:00 | disposition still patient (30) | LOC: PAVC 17:53 | PROVIDERS: ADMIT Internal Medicine ==

== ENCOUNTER 2018-12-14 13:42 | Inpatient (IN) | payer OTHER | END 2019-01-14 14:17 | disposition still patient (30) | LOC: PAVC 13:42 | PROVIDERS: ADMIT Internal Medicine ==

== ENCOUNTER 2019-01-14 15:06 | Inpatient (IN) | payer OTHER | END 2019-02-13 08:00 | disposition still patient (30) | LOC: PAVC 15:06 | PROVIDERS: ADMIT Internal Medicine ==

== ENCOUNTER 2019-01-19 03:45 | Outpatient (CLI) | payer OTHER | END 2019-01-19 21:28 | disposition home or self-care (01) | LOC: LAB 03:45 | DX: R97.20 Elevated prostate specific antigen [PSA] (principal) | CPT/HCPCS: 84153 ==

== ENCOUNTER 2019-02-13 11:00 | Inpatient (IN) | payer OTHER | END 2019-03-16 09:32 | disposition still patient (30) | LOC: PAVC 11:00 | PROVIDERS: ADMIT Internal Medicine ==

== ENCOUNTER 2019-03-16 10:09 | Inpatient (IN) | payer OTHER | END 2019-04-16 10:47 | disposition still patient (30) | LOC: PAVC 10:09 | PROVIDERS: ADMIT Internal Medicine ==

== ENCOUNTER 2019-04-16 11:42 | Inpatient (IN) | payer OTHER | END 2019-05-15 14:13 | disposition still patient (30) | LOC: PAVC 11:42 | PROVIDERS: ADMIT Internal Medicine ==

== ENCOUNTER 2019-04-17 04:34 | Outpatient (CLI) | payer OTHER ==
[2019-04-17 06:45] LABS: PLATELET COUNT 169 K/uL (142-355)
[2019-04-17 06:58] LABS: POTASSIUM 4.3 mmol/L (3.6-5.2)
== END 2019-04-17 19:01 | disposition home or self-care (01) ==
LOC: LAB 04:34
PROVIDERS: Internal Medicine
DX: J44.9 Chronic obstructive pulmonary disease, unspecified (principal); C61 Malignant neoplasm of prostate; I10 Essential (primary) hypertension
CPT/HCPCS: 80053; 85027

== ENCOUNTER 2019-05-15 14:51 | Inpatient (IN) | payer OTHER | END 2019-06-15 11:45 | disposition still patient (30) | LOC: PAVC 14:51 | PROVIDERS: ADMIT Internal Medicine ==

== ENCOUNTER 2019-06-15 12:22 | Inpatient (IN) | payer OTHER | END 2019-07-15 11:24 | disposition still patient (30) | LOC: PAVC 12:22 | PROVIDERS: ADMIT Internal Medicine ==

== ENCOUNTER 2019-07-11 11:08 | Outpatient (CLI) | payer OTHER | END 2019-07-11 19:38 | disposition home or self-care (01) | LOC: RAD 11:08 | DX: J44.9 Chronic obstructive pulmonary disease, unspecified (principal); R05 Cough ==

== ENCOUNTER 2019-07-15 12:05 | Inpatient (IN) | payer OTHER | END 2019-08-15 11:23 | disposition still patient (30) | LOC: PAVC 12:05 | PROVIDERS: ADMIT Internal Medicine ==

== ENCOUNTER 2019-08-15 11:56 | Inpatient (IN) | payer OTHER | END 2019-09-14 11:57 | disposition still patient (30) | LOC: PAVC 11:56 | PROVIDERS: ADMIT Internal Medicine | CPT/HCPCS: 87635; U0002 ==

== ENCOUNTER 2019-09-14 12:17 | Inpatient (IN) | payer OTHER | END 2019-10-15 10:15 | disposition still patient (30) | LOC: PAVC 12:17 | PROVIDERS: ADMIT Internal Medicine ==

== ENCOUNTER 2019-10-15 10:39 | Inpatient (IN) | payer OTHER | END 2019-11-15 14:04 | disposition still patient (30) | LOC: PAVC 10:39 | PROVIDERS: ADMIT Internal Medicine ==

== ENCOUNTER 2019-10-17 07:20 | Outpatient (CLI) | payer OTHER ==
[2019-10-17 08:09] LABS: PLATELET COUNT 196 K/uL (142-355)
[2019-10-17 08:17] LABS: POTASSIUM 4.2 mmol/L (3.6-5.2)
== END 2019-10-17 22:33 | disposition home or self-care (01) ==
LOC: LAB 07:20
PROVIDERS: Internal Medicine
DX: I10 Essential (primary) hypertension (principal); C61 Malignant neoplasm of prostate; J44.9 Chronic obstructive pulmonary disease, unspecified
CPT/HCPCS: 80053; 85027

== ENCOUNTER 2019-10-19 17:34 | Outpatient (CLI) | payer OTHER | END 2019-10-19 19:48 | disposition home or self-care (01) | LOC: LAB 17:34 | DX: C61 Malignant neoplasm of prostate (principal) | CPT/HCPCS: 84153 ==

== ENCOUNTER 2019-11-15 14:55 | Inpatient (IN) | payer OTHER | END 2019-12-15 14:10 | disposition still patient (30) | LOC: PAVC 14:55 | PROVIDERS: ADMIT Internal Medicine ==

== ENCOUNTER 2019-12-15 15:13 | Inpatient (IN) | payer OTHER | END 2020-01-15 08:00 | disposition still patient (30) | LOC: PAVC 15:13 | PROVIDERS: ADMIT Internal Medicine ==

== ENCOUNTER 2020-01-15 09:00 | Inpatient (IN) | payer OTHER | END 2020-02-14 12:26 | disposition still patient (30) | LOC: PAVC 09:00 | PROVIDERS: ADMIT Internal Medicine; ATTEND Internal Medicine ==

== ENCOUNTER 2020-02-14 12:56 | Inpatient (IN) | payer OTHER | END 2020-03-16 09:48 | disposition still patient (30) | LOC: PAVC 12:56 | PROVIDERS: ADMIT Internal Medicine; ATTEND Internal Medicine ==

== ENCOUNTER 2020-03-16 10:14 | Inpatient (IN) | payer OTHER | END 2020-04-16 15:31 | disposition still patient (30) | LOC: PAVC 10:14 | PROVIDERS: ADMIT Internal Medicine; ATTEND Internal Medicine ==

== ENCOUNTER 2020-04-16 15:36 | Inpatient (IN) | payer OTHER | END 2020-05-14 11:17 | disposition still patient (30) | LOC: PAVC 15:36 | PROVIDERS: ADMIT Internal Medicine; ATTEND Internal Medicine ==

== ENCOUNTER 2020-04-18 07:07 | Outpatient (CLI) | payer OTHER ==
[2020-04-18 07:53] LABS: PLATELET COUNT 182 K/uL (142-355)
[2020-04-18 08:53] LABS: SODIUM 140 mmol/L (136-145)
== END 2020-04-18 21:09 | disposition home or self-care (01) ==
LOC: LAB 07:07
PROVIDERS: ATTEND Internal Medicine
DX: J44.9 Chronic obstructive pulmonary disease, unspecified (principal); C61 Malignant neoplasm of prostate; I10 Essential (primary) hypertension
CPT/HCPCS: 80053; 84153; 85027

== ENCOUNTER 2020-05-14 11:49 | Inpatient (IN) | payer OTHER | END 2020-06-14 12:23 | disposition still patient (30) | LOC: PAVC 11:49 | PROVIDERS: ADMIT Internal Medicine; ATTEND Internal Medicine ==

== ENCOUNTER 2020-06-14 13:53 | Inpatient (IN) | payer OTHER | END 2020-07-14 11:26 | disposition still patient (30) | LOC: PAVC 13:53 | PROVIDERS: ADMIT Internal Medicine; ATTEND Internal Medicine ==

== ENCOUNTER 2020-07-13 14:11 | Outpatient (CLI) | payer OTHER | END 2020-07-13 21:51 | disposition home or self-care (01) | LOC: RAD 14:11 | PROVIDERS: ATTEND Internal Medicine | DX: R14.0 Abdominal distension (gaseous) (principal) ==

== ENCOUNTER 2020-07-14 11:48 | Inpatient (IN) | payer OTHER | END 2020-08-14 15:45 | disposition still patient (30) | LOC: PAVC 11:48 | PROVIDERS: ADMIT Internal Medicine; ATTEND Internal Medicine ==

== ENCOUNTER 2020-08-14 16:23 | Inpatient (IN) | payer OTHER | END 2020-09-13 08:00 | disposition still patient (30) | LOC: PAVC 16:23 | PROVIDERS: ADMIT Internal Medicine; ATTEND Internal Medicine ==

== ENCOUNTER 2020-09-13 09:00 | Inpatient (IN) | payer OTHER | END 2020-10-14 08:00 | disposition still patient (30) | LOC: PAVC 09:00 | PROVIDERS: ADMIT Internal Medicine; ATTEND Internal Medicine ==

== ENCOUNTER 2020-09-21 08:40 | Outpatient (CLI) | payer OTHER | END 2020-09-21 21:53 | disposition home or self-care (01) | LOC: US 08:40 | PROVIDERS: ATTEND Internal Medicine | DX: R10.11 Right upper quadrant pain (principal) ==

== ENCOUNTER 2020-10-14 09:00 | Inpatient (IN) | payer OTHER | END 2020-11-14 13:51 | disposition still patient (30) | LOC: PAVC 09:00 | PROVIDERS: ADMIT Internal Medicine; ATTEND Internal Medicine ==

== ENCOUNTER 2020-10-15 09:59 | Outpatient (CLI) | payer OTHER ==
[2020-10-15 10:19] LABS: PLATELET COUNT 174 K/uL (142-355)
[2020-10-15 11:17] LABS: SODIUM 143 mmol/L (136-145)
== END 2020-10-15 22:40 | disposition home or self-care (01) ==
LOC: LAB 09:59
PROVIDERS: ATTEND Internal Medicine
DX: I10 Essential (primary) hypertension (principal); C61 Malignant neoplasm of prostate; J44.1 Chronic obstructive pulmonary disease with (acute) exacerbation
CPT/HCPCS: 80053; 84153; 85027

== ENCOUNTER 2020-11-14 14:27 | Inpatient (IN) | payer OTHER | END 2020-12-14 09:39 | disposition still patient (30) | LOC: PAVC 14:27 | PROVIDERS: ADMIT Internal Medicine; ATTEND Internal Medicine ==

== ENCOUNTER 2021-02-13 12:56 | Inpatient (IN) | payer OTHER | END 2021-03-16 09:09 | disposition still patient (30) | LOC: PAVC 12:56 | PROVIDERS: ADMIT Internal Medicine; ATTEND Internal Medicine ==

== ENCOUNTER 2021-03-16 09:38 | Inpatient (IN) | payer OTHER | END 2021-04-16 08:59 | disposition still patient (30) | LOC: PAVC 09:38 | PROVIDERS: ADMIT Internal Medicine; ATTEND Internal Medicine ==

== ENCOUNTER 2021-04-09 07:57 | Outpatient (CLI) | payer OTHER ==
[~2021-04-09] VITALS: Ht 182.9 cm; Wt 99.9 kg
== END 2021-04-09 18:55 | disposition home or self-care (01) ==
LOC: RAD 07:57 → INF 07:57
PROVIDERS: ATTEND Internal Medicine
DX: U07.1 COVID-19 (principal); Z23 Encounter for immunization
CPT/HCPCS: 96365; Q0247

== ENCOUNTER 2021-04-16 13:37 | Inpatient (IN) | payer OTHER | END 2021-05-14 09:10 | disposition still patient (30) | LOC: PAVC 13:37 | PROVIDERS: ADMIT Internal Medicine; ATTEND Internal Medicine ==

== ENCOUNTER 2021-04-17 08:20 | Outpatient (CLI) | payer OTHER ==
[2021-04-17 10:14] LABS: PLATELET COUNT 219 K/uL (142-355)
[2021-04-17 10:32] LABS: POTASSIUM 4.5 mmol/L (3.6-5.2)
== END 2021-04-17 19:32 | disposition home or self-care (01) ==
LOC: LAB 08:20
PROVIDERS: ATTEND Internal Medicine
DX: I10 Essential (primary) hypertension (principal); J44.9 Chronic obstructive pulmonary disease, unspecified; Z85.46 Personal history of malignant neoplasm of prostate; Z08 Encounter for follow-up examination after completed treatment for malignant neoplasm
CPT/HCPCS: 80053; 84153; 85027

== ENCOUNTER 2021-05-14 14:29 | Inpatient (IN) | payer OTHER | END 2021-06-14 14:15 | disposition still patient (30) | LOC: PAVC 14:29 | PROVIDERS: ADMIT Internal Medicine; ATTEND Internal Medicine ==

== ENCOUNTER 2021-06-14 15:36 | Inpatient (IN) | payer OTHER | END 2021-07-14 10:42 | disposition still patient (30) | LOC: PAVC 15:36 | PROVIDERS: ADMIT Internal Medicine; ATTEND Internal Medicine ==

== ENCOUNTER 2021-07-14 02:55 | Inpatient (IN) | payer OTHER | END 2021-08-14 10:03 | disposition still patient (30) | LOC: PAVC 02:55 | PROVIDERS: ADMIT Internal Medicine; ATTEND Internal Medicine ==

== ENCOUNTER 2021-08-01 10:55 | Outpatient (CLI) | payer OTHER | END 2021-08-01 21:17 | disposition home or self-care (01) | LOC: US 10:55 | PROVIDERS: ATTEND Internal Medicine | DX: R31.9 Hematuria, unspecified (principal) ==

== ENCOUNTER 2021-08-14 16:26 | Inpatient (IN) | payer OTHER | END 2021-09-13 09:18 | disposition still patient (30) | LOC: PAVC 16:26 | PROVIDERS: ADMIT Internal Medicine; ATTEND Internal Medicine ==

== ENCOUNTER 2021-09-13 13:29 | Inpatient (IN) | payer OTHER ==
[2021-10-14 08:03] LABS: PLATELET COUNT 304 K/uL (142-355)
[2021-10-14 08:28] LABS: POTASSIUM 4.6 mmol/L (3.6-5.2); SODIUM 138 mmol/L (136-145)
== END 2021-10-14 09:13 | disposition still patient (30) ==
LOC: PAVC 13:29
PROVIDERS: ADMIT Internal Medicine; ATTEND Internal Medicine
DX: S72.142D Displaced intertrochanteric fracture of left femur, subsequent encounter for closed fracture with routine healing (principal); M62.81 Muscle weakness (generalized); R26.2 Difficulty in walking, not elsewhere classified; R26.81 Unsteadiness on feet; Z74.1 Need for assistance with personal care
CPT/HCPCS: 80053; 84153; 85027

== ENCOUNTER 2021-10-01 08:57 | Emergency (ER) | payer OTHER ==
[~2021-10-01] VITALS: Ht 182.9 cm; Wt 99.8 kg
[2021-10-01 09:44] LABS: PLATELET COUNT 224 K/uL (142-355)
[2021-10-01 09:51] LABS: POTASSIUM 4.3 mmol/L (3.6-5.2)
[2021-10-01 10:00] LABS: PARTIAL THROMBOPLASTIN TIME 25.5 SECONDS (24.5-33.6)
[2021-10-01 13:20] VITALS: TEMP 98
[2021-10-01 14:00] VITALS: BP 112/74
== END 2021-10-01 14:09 | disposition short-term general hospital (02) ==
LOC: ED 08:57
PROVIDERS: Emergency Medicine
DX: S72.142A Displaced intertrochanteric fracture of left femur, initial encounter for closed fracture (principal); S72.22XA Displaced subtrochanteric fracture of left femur, initial encounter for closed fracture; S72.112A Displaced fracture of greater trochanter of left femur, initial encounter for closed fracture; S72.122A Displaced fracture of lesser trochanter of left femur, initial encounter for closed fracture; S72.342A Displaced spiral fracture of shaft of left femur, initial encounter for closed fracture; W01.198A Fall on same level from slipping, tripping and stumbling with subsequent striking against other object, initial encounter; Y92.122 Bedroom in nursing home as the place of occurrence of the external cause; Z11.52 Encounter for screening for COVID-19
CPT/HCPCS: 80053; 82550; 83880; 84484; 85027; 85610; 85730; 87635; 93005; 96360; 96374; 96375; 96376; 99284; J1885; J2175; J2270; J2405; U0003

== ENCOUNTER 2021-10-14 11:05 | Inpatient (IN) | payer OTHER | END 2021-11-14 09:15 | disposition still patient (30) | LOC: PAVC 11:05 | PROVIDERS: ADMIT Internal Medicine; ATTEND Internal Medicine | DX: S72.142D Displaced intertrochanteric fracture of left femur, subsequent encounter for closed fracture with routine healing (principal); M62.81 Muscle weakness (generalized); R26.2 Difficulty in walking, not elsewhere classified; R26.81 Unsteadiness on feet; Z74.1 Need for assistance with personal care ==

== ENCOUNTER 2021-12-14 14:59 | Inpatient (IN) | payer OTHER | END 2022-01-14 12:16 | disposition still patient (30) | LOC: PAVC 14:59 | PROVIDERS: ADMIT Family Medicine; ATTEND Family Medicine ==

== ENCOUNTER → 2021-12-24 | Outpatient (CLI) | payer OTHER | LOC: LAB 20:48 | PROVIDERS: ATTEND Family Medicine | DX: J10.08 Influenza due to other identified influenza virus with other specified pneumonia (principal) | CPT/HCPCS: 87502 ==

== ENCOUNTER 2022-01-14 14:22 | Inpatient (IN) | payer OTHER | END 2022-02-13 15:33 | disposition still patient (30) | LOC: PAVC 14:22 | PROVIDERS: ADMIT Family Medicine; ATTEND Family Medicine ==

== ENCOUNTER 2022-02-13 16:27 | Inpatient (IN) | payer OTHER | END 2022-03-16 10:57 | disposition still patient (30) | LOC: PAVC 16:27 | PROVIDERS: ADMIT Family Medicine; ATTEND Family Medicine ==

== ENCOUNTER 2022-03-14 14:06 | Outpatient (CLI) | payer OTHER | END 2022-03-14 23:39 | disposition home or self-care (01) | LOC: LAB 14:06 | PROVIDERS: ATTEND Family Medicine | DX: R31.0 Gross hematuria (principal) | CPT/HCPCS: 81000 ==

== ENCOUNTER 2022-03-16 14:34 | Inpatient (IN) | payer OTHER | END 2022-04-16 09:29 | disposition still patient (30) | LOC: PAVC 14:34 | PROVIDERS: ADMIT Family Medicine; ATTEND Family Medicine ==

== ENCOUNTER 2022-03-17 11:08 | Outpatient (CLI) | payer OTHER ==
[2022-03-17 11:22] LABS: POTASSIUM 4.2 mmol/L (3.6-5.2)
== END 2022-03-17 19:07 | disposition home or self-care (01) ==
LOC: LAB 11:08
PROVIDERS: ATTEND Family Medicine
DX: J44.9 Chronic obstructive pulmonary disease, unspecified (principal); S72.142D Displaced intertrochanteric fracture of left femur, subsequent encounter for closed fracture with routine healing; Y92.89 Other specified places as the place of occurrence of the external cause
CPT/HCPCS: 80053

== ENCOUNTER 2022-03-18 09:13 | Outpatient (CLI) | payer OTHER | END 2022-03-18 18:58 | disposition home or self-care (01) | LOC: CT 09:13 | PROVIDERS: ATTEND Family Medicine | DX: R31.0 Gross hematuria (principal) | CPT/HCPCS: Q9963 ==

== ENCOUNTER 2022-04-15 06:12 | Outpatient (CLI) | payer OTHER ==
[2022-04-15 06:33] LABS: PLATELET COUNT 217 K/uL (142-355)
[2022-04-15 06:57] LABS: POTASSIUM 4.3 mmol/L (3.6-5.2); SODIUM 141 mmol/L (136-145)
== END 2022-04-15 19:17 | disposition home or self-care (01) ==
LOC: LAB 06:12
PROVIDERS: ATTEND Family Medicine
DX: J44.1 Chronic obstructive pulmonary disease with (acute) exacerbation (principal); C61 Malignant neoplasm of prostate; R82.998 Other abnormal findings in urine
CPT/HCPCS: 80053; 81000; 84153; 85027; 87077; 87086; 87088; 87186

== ENCOUNTER 2022-04-16 12:35 | Inpatient (IN) | payer OTHER ==
[~2022-04-16] VITALS: Ht 188 cm; Wt 95.3 kg
== END 2022-05-14 15:22 | disposition still patient (30) ==
LOC: PAVC 12:35
PROVIDERS: ADMIT Family Medicine; ATTEND Family Medicine

== ENCOUNTER 2022-04-22 10:04 | Outpatient (CLI) | payer OTHER | END 2022-04-22 23:16 | disposition home or self-care (01) | LOC: RESP 10:04 | PROVIDERS: ATTEND Family Medicine | DX: R94.39 Abnormal result of other cardiovascular function study (principal); Z79.899 Other long term (current) drug therapy ==

== ENCOUNTER 2022-04-28 08:10 | Outpatient (CLI) | payer OTHER ==
[~2022-04-28] VITALS: Ht 188 cm; Wt 95.3 kg
== END 2022-04-28 19:03 | disposition home or self-care (01) ==
LOC: NM 08:10
PROVIDERS: ATTEND Family Medicine
DX: R94.39 Abnormal result of other cardiovascular function study (principal)
CPT/HCPCS: A9500; J2785

== ENCOUNTER 2022-05-14 16:21 | Inpatient (IN) | payer OTHER | END 2022-06-14 12:54 | disposition still patient (30) | LOC: PAVC 16:21 | PROVIDERS: ADMIT Family Medicine; ATTEND Family Medicine ==

== ENCOUNTER 2022-06-14 13:30 | Inpatient (IN) | payer OTHER | END 2022-07-14 16:44 | disposition still patient (30) | LOC: PAVC 13:30 | PROVIDERS: ADMIT Family Medicine; ATTEND Family Medicine ==

== ENCOUNTER 2022-07-14 17:55 | Inpatient (IN) | payer OTHER | END 2022-08-14 12:21 | disposition still patient (30) | LOC: PAVC 17:55 | PROVIDERS: ADMIT Family Medicine; ATTEND Family Medicine ==

== ENCOUNTER 2022-08-14 12:37 | Inpatient (IN) | payer OTHER | END 2022-09-13 17:43 | disposition still patient (30) | LOC: PAVC 12:37 | PROVIDERS: ADMIT Family Medicine; ATTEND Family Medicine ==

== ENCOUNTER 2022-10-14 06:23 | Outpatient (CLI) | payer OTHER ==
[2022-10-14 07:28] LABS: PLATELET COUNT 196 K/uL (142-355)
[2022-10-14 07:49] LABS: POTASSIUM 4.1 mmol/L (3.6-5.2); SODIUM 141 mmol/L (136-145)
== END 2022-10-14 19:29 | disposition home or self-care (01) ==
LOC: LAB 06:23
PROVIDERS: ATTEND Family Medicine
DX: J44.9 Chronic obstructive pulmonary disease, unspecified (principal); C61 Malignant neoplasm of prostate
CPT/HCPCS: 36415; 80053; 84153; 85027

== ENCOUNTER 2022-12-26 10:32 | Outpatient (CLI) | payer OTHER | END 2022-12-26 19:49 | disposition home or self-care (01) | LOC: RESP 10:32 | PROVIDERS: ATTEND Internal Medicine | DX: R42 Dizziness and giddiness (principal) | CPT/HCPCS: 93005 ==

== ENCOUNTER 2023-04-29 05:09 | Outpatient (CLI) | payer OTHER ==
[2023-04-29 05:20] LABS: PLATELET COUNT 188 K/uL (142-355)
== END 2023-04-29 19:00 | disposition home or self-care (01) ==
LOC: LAB 05:09
PROVIDERS: ATTEND Internal Medicine
DX: J44.9 Chronic obstructive pulmonary disease, unspecified (principal)
CPT/HCPCS: 36415; 85027